=== PATIENT | female | born 1965 | race Caucasian/White ===

== ENCOUNTER 2021-04-18 09:27 | Inpatient (IN) | payer OTHER, SELFPAY ==
[2021-04-18] VITALS (72 sets, daily range): BP systolic 104–191; BP diastolic 57–118; PULSE 76–172; RESP 16–44; TEMP 36.1–36.9; O2SAT 92–99; BMI 38.4; BMI 37.9
--- NOTE | 2021-04-18 10:15 | ED_ITS ---
HPI - General Adult General Chief complaint: Hypertension Stated complaint: High bp, sent by [facility] Time Seen by Provider: 04/18/21 10:14 Source: patient Mode of arrival: Ambulatory Limitations: no limitations History of Present Illness HPI narrative: Patient is a 55-year-old female who has history of hypertension presenting with palpitations is intermittently an elevated blood pressure. She says over the last 3 days she has had intermittent palpitations. She occasionally feels a whooshing sound in her head. She felt a little dizzy lightheaded at times but not currently. She currently has no chest pain or pal pitations. Concerned about her blood pressure. She said due to insurance reasons and lack of PCP she ran out of her blood pressure medications about a year ago and has not followed up. Related Data Home Medications Medication Instructions Recorded Confirmed amlodipine 5 mg tablet 5 mg PO DAILY 04/18/21 04/18/21 hydrochlorothiazide 25 mg tablet 25 mg PO DAILY 04/18/21 04/18/21 lisinopril 20 mg tablet 20 mg PO DAILY 04/18/21 04/18/21 Allergies Allergy/AdvReac Type Severity Reaction Status Date / Time Penicillins Allergy Verified 04/18/21 10:45 Review of Systems Review of Systems Narrative: GENERAL: Denies chills, fatigue, malaise, fever, sweats, travel HEENT: Denies sinus pain, ear pain, sore throat, difficulty swallowing, neck pain RESPIRATORY: Denies dyspnea, cough, wheezing, hemoptysis, sputum. CARDIOVASCULAR: See HPI GASTROINTESTINAL: Denies nausea, vomiting, abdominal pain, diarrhea, constipation, melena. : Denies dysuria, frequency, incontinence, hematuria, urinary retention, flank pain. MUSCULOSKELETAL: Denies weakness, joint pain, or bony pain SKIN: No rash, no erythema, no pruritus NEUROLOGIC: Mild headache and lightheadedness Denies weakness, numbness, change in speech, confusion PSYCHIATRIC: No concerning psychosocial issues. 12 point review of systems is negative except for those stated above and HPI Patient History Medical History Alcohol use Anxiety Hypertension Surgical History H/O section Family History (Updated 04/18/21 @ 13:36 by Jesenia Guerrero MD) Mother COPD (chronic obstructive pulmonary disease) Social History Smoking Status: Never smoker alcohol intake: current Smoking Status: Never smoker alcohol intake frequency: 0-2 drinks per day Substance Use Type: does not use Exam Initial Vital Signs Initial Vital Signs: Vital Signs Temperature 98.3 F 04/18/21 09:44 Pulse Rate 97 H 04/18/21 09:44 Respiratory Rate 16 04/18/21 09:44 Blood Pressure 184/109 H 04/18/21 09:44 Pulse Oximetry 95 04/18/21 09:44 GENERAL: Slightly tearful 55-year-old female appears in no acute distress HEENT: Head atraumatic,EOMI, pupils reactive, face symmetric, moist mucous membranes CARDIOVASCULAR: Regular rate and rhythm without murmurs, rubs or gallops. RESPIRATORY: Breath sounds equal bilaterally, no wheezes rales or rhonchi. ABDOMEN: Soft, nontender. Normoactive bowel sounds all 4 quadrants. No guarding or rebound. EXTREMITIES: Normal range of motion, no clubbing or edema. Neurovascularly intact NEUROLOGICAL: Alert and oriented x4.Normal gait and speech. Cranial nerves II through XII grossly intact. Good [id number], good [id number], strength equal bilaterally, no dysarthria or aphasia, sensation in tact to soft touch bilaterally, no visual changes, no facial droop SKIN: Warm, dry, no laceration, no petechiae, no rashes or lesions. Scores CHADS-VASc Congestive heart failure: no Hypertension: yes Age 75 years or older: no Diabetes mellitus: no Stroke, TIA, or TE: no Vascular disease: no Age 65 to 74 years: no Sex category (female): Female CHADS-VASc Score: 2 Course Orders Ordered: ED Orders 04/18/21 10:19 XR chest 1V Stat EKG-12 Lead Stat 04/18/21 10:39 Complete Blood Count AUTO DIFF Stat Comprehensive Metabolic Panel Stat Lipase Stat NT-proBNP (BNP-Adult 18+) Stat Troponin & CK Cardiac Panel Stat 04/18/21 11:56 COVID19 - ADMIT (OBSTETRICIAN GYNECOLOGIST swab/PCR) Stat 04/18/21 13:10 Troponin I Stat Enoxaparin Sodium (Enoxaparin 100 Mg/Ml Syringe) 95 mg SUBCUT BID KISHAN Diltiazem HCl 125 mg/ Sodium (Chloride) 125 mls @ 5 mls/hr IV TITRATE KISHAN; Protocol Last Admin: 04/18/21 18:31 Dose: 20 mg/hr, 20 mls/hr Documented by: Titration: 04/18/21 18:31 Dose: 15 mg/hr, 15 mls/hr Documented by: Titration: 04/18/21 14:30 Dose: 15 mg/hr, 15 mls/hr Documented by: Titration: 04/18/21 12:39 Dose: 10 mg/hr, 10 mls/hr Documented by: Admin: 04/18/21 11:48 Dose: 5 mg/hr, 5 mls/hr Documented by: LEIA Sodium Chloride (Normal Saline 0.9%) 1,000 mls @ 100 mls/hr IV CONT KISHAN Last Admin: 04/18/21 14:22 Dose: 100 mls/hr Documented by: BALJINDER Lisinopril (Lisinopril 5 Mg Tablet) 5 mg PO DAILY [facility] Last Admin: 04/18/21 17:15 Dose: 5 mg Documented by: SUDARSHAN Lorazepam (Lorazepam 1 Mg Tablet) 1 mg PO Q4HR PRN PRN Reason: Anxiety Metoprolol Succinate (Metoprolol Er 25 Mg Tablet) 25 mg PO DAILY [facility] Last Admin: 04/18/21 17:15 Dose: 25 mg Documented by: SUDARSHAN Naloxone HCl (Naloxone 0.4 Mg/Ml Vial) 0.2 mg IV Q2MIN PRN PRN Reason: Opiate Reversal Sertraline HCl (Sertraline 50 Mg Tablet) 50 mg PO BEDTIME KISHAN Discontinued Medications Diltiazem HCl (Diltiazem 5 Mg/Ml Sdv) 10 mg IV NOW ONE Stop: 04/18/21 10:43 Last Admin: 04/18/21 10:55 Dose: 10 mg Documented by: LEIA Diltiazem HCl (Diltiazem 5 Mg/Ml Sdv) 20 mg IV NOW ONE Stop: 04/18/21 13:04 Last Admin: 04/18/21 13:12 Dose: 20 mg Documented by: LEIA Vital Signs Vital signs: Vital Signs - 8 hr 04/18/21 11:15 04/18/21 11:20 04/18/21 11:30 Pulse Rate 112 H 132 H 134 H Respiratory Rate 17 23 24 Blood Pressure 167/109 H Pulse Oximetry 94 95 94 04/18/21 11:31 04/18/21 11:41 04/18/21 11:45 Pulse Rate 132 H 136 H 132 H Respiratory Rate 20 24 20 Blood Pressure 191/100 H 158/92 H Pulse Oximetry 95 95 95 04/18/21 12:00 04/18/21 12:03 04/18/21 12:15 Pulse Rate 167 H 156 H 163 H Respiratory Rate 19 25 H 38 H Blood Pressure 169/93 H 175/105 H Pulse Oximetry 98 97 97 04/18/21 12:30 04/18/21 12:45 Pulse Rate 129 H 159 H Respiratory Rate 21 44 H Blood Pressure Pulse Oximetry 97 97 Medical Decision Making Lab Data Result diagrams: 04/18/21 10:39 04/18/21 10:39 Labs: Lab Results 04/18/21 04/18/21 04/18/21 Range/Units 10:39 10:39 10:39 WBC 11.0 (4.5-11.0) X10^3/uL RBC 5.64 H (4.0-5.2) X10^6/uL Hgb 17.8 H (12.0-16.0) g/dL Hct 52.9 H (36-46) % MCV 93.7 (80-100) fL MCH 31.6 (26-34) PG MCHC 33.7 (30-36) % RDW 13.1 (11.6-14.8) % Plt Count 265 (150-400) X10^3/uL Neut % (Auto) 61.1 (50-75) % Lymph % (Auto) 27.4 (25-40) % [place] % (Auto) 9.2 (3-14) % Eos % (Auto) 1.6 L (2-4) % Baso % (Auto) 0.7 (0-2) % Neut # (Auto) 6700 (0706-6033) /uL Lymph # (Auto) 3000 (6161-0102) /uL [place] # (Auto) 1000 H (0-900) /uL Eos # (Auto) 200 (0-450) /uL Baso # (Auto) 100 (0-100) /uL Sodium 143 (137-145) mmol/L Potassium 4.2 (3.4-5.1) mmol/L Chloride 104 (98-107) mmol/L Carbon Dioxide 27 (22-32) mmol/L BUN 14 (7-17) mg/dL Creatinine 0.61 (0.52-1.04) mg/dL Estimated GFR > 60.0 (>60) mL/min BUN/Creatinine Ratio 23.0 H (6-22) Glucose 100 (70-100) mg/dL Calcium 10.2 (8.4-10.2) mg/dL Magnesium (1.6-2.3) mg/dL Total Bilirubin 0.6 (0.2-1.3) mg/dL AST 34 (14-36) IU/L ALT 29 (<35) IU/L Alkaline Phosphatase 107 (38-126) U/L Total Creatine Kinase 101 (30-135) U/L CK-MB (CK-2) 0.96 (<2.37) ng/mL CK-MB (CK-2) Rel Index 1.0 L (1.5-5.0) % Troponin I 0.066 H (0.01-0.034) ng/mL NT-Pro-B Natriuret Pep 209 H (<125) pg/mL Total Protein 8.6 H (6.3-8.2) g/dL Albumin 4.7 (3.5-5.0) g/dL Globulin 3.9 (1.7-4.1) g/dL Albumin/Globulin Ratio 1.2 (1.0-2.8) Lipase 107 (23-300) U/L TSH (0.47-4.68) uIU/mL SARS-CoV-2 (PCR) (Negative) 04/18/21 04/18/21 04/18/21 Range/Units 10:39 10:39 11:56 WBC (4.5-11.0) X10^3/uL RBC (4.0-5.2) X10^6/uL Hgb (12.0-16.0) g/dL Hct (36-46) % MCV (80-100) fL MCH (26-34) PG MCHC (30-36) % RDW (11.6-14.8) % Plt Count (150-400) X10^3/uL Neut % (Auto) (50-75) % Lymph % (Auto) (25-40) % [place] % (Auto) (3-14) % Eos % (Auto) (2-4) % Baso % (Auto) (0-2) % Neut # (Auto) (9487-5613) /uL Lymph # (Auto) (0234-4561) /uL [place] # (Auto) (0-900) /uL Eos # (Auto) (0-450) /uL Baso # (Auto) (0-100) /uL Sodium (137-145) mmol/L Potassium (3.4-5.1) mmol/L Chloride (98-107) mmol/L Carbon Dioxide (22-32) mmol/L BUN (7-17) mg/dL Creatinine (0.52-1.04) mg/dL Estimated GFR (>60) mL/min BUN/Creatinine Ratio (6-22) Glucose (70-100) mg/dL Calcium (8.4-10.2) mg/dL Magnesium 2.1 (1.6-2.3) mg/dL Total Bilirubin (0.2-1.3) mg/dL AST (14-36) IU/L ALT (<35) IU/L Alkaline Phosphatase (38-126) U/L Total Creatine Kinase (30-135) U/L CK-MB (CK-2) (<2.37) ng/mL CK-MB (CK-2) Rel Index (1.5-5.0) % Troponin I (0.01-0.034) ng/mL NT-Pro-B Natriuret Pep (<125) pg/mL Total Protein (6.3-8.2) g/dL Albumin (3.5-5.0) g/dL Globulin (1.7-4.1) g/dL Albumin/Globulin Ratio (1.0-2.8) Lipase (23-300) U/L TSH 2.59 (0.47-4.68) uIU/mL SARS-CoV-2 (PCR) Negative (Negative) Imaging Data Chest x-ray: Radiologist's Impression: PROCEDURE: XR CHEST 1V INDICATIONS: chest pain TECHNIQUE: One view of the chest was acquired. COMPARISON: None. FINDINGS: Surgical changes and devices: None. Lungs and pleura: Minimal right basilar atelectasis. No pleural effusions or pneumothorax. Mediastinum: Mediastinal contours appear normal. Heart size is normal. Bones and chest wall: No suspicious bony lesions. Overlying soft tissues appear unremarkable. IMPRESSION: Minimal right basilar atelectasis. Dictated by: Tanmay Durham M.D. on 04/18/2021 at 10:30 Approved by: Tanmay Durham M.D. on 04/18/2021 at 10:31 ECG Data Interpretation: AFib with RVR rate [address] changes MDM Narrative Medical decision making narrative: Patient initial triage heart rate was 97. However EKG shows AFib with RVR and rate 163. Patient has been complaining of palpitations for the last 3 days. She is not a candidate for cardioversion and out of the window. No prior history of atrial fibrillation. She also has no follow-up or PCP. Troponin indeterminate likely from rapid ventricular rate. He is given initial Cardizem bolus of 10 mg which slowed her heart rate into the 120s or below however did come back up and she is placed on a Cardizem drip. Dr. mccoy updated on patient's symptoms test results and happily accepts patient Discharge Plan Departure Patient Disposition: Admitted As Inpatient Clinical Impression: Atrial fibrillation with rapid ventricular response Admit Date/Time: 04/18/21 12:45 Admit Provider: Jesenia Guerrero
--- NOTE | 2021-04-18 10:19 | DI.RAD.S_ITS ---
PROCEDURE: XR CHEST 1V INDICATIONS: chest pain TECHNIQUE: One view of the chest was acquired. COMPARISON: None. FINDINGS: Surgical changes and devices: None. Lungs and pleura: Minimal right basilar atelectasis. No pleural effusions or pneumothorax. Mediastinum: Mediastinal contours appear normal. Heart size is normal. Bones and chest wall: No suspicious bony lesions. Overlying soft tissues appear unremarkable. IMPRESSION: Minimal right basilar atelectasis. Dictated by: Tanmay Durham M.D. on 04/18/2021 at 10:30 Approved by: Tanmay Durham M.D. on 04/18/2021 at 10:31
[2021-04-18] MEDS: dilTIAZem 5 MG/ML SDV 10 MG IV (10:55)
[2021-04-18 11:00] LABS: Add Manual Diff / Slide Review NO; Basophils Absolute Auto 100 /uL (0-100); Basophils Percent Auto 0.7 % (0-2); Eosinophils Absolute Auto 200 /uL (0-450); Eosinophils Percent Auto 1.6 % (2-4); Hematocrit 52.9 % (36-46); Hemoglobin 17.8 g/dL (12.0-16.0); Lymphocytes Absolute Auto 3000 /uL (1100-4500); Lymphocytes Percent Auto 27.4 % (25-40); Mean Corpuscular HGB Conc 33.7 % (30-36); Mean Corpuscular Hemoglobin 31.6 PG (26-34); Mean Corpuscular Volume 93.7 fL (80-100); Monocytes Absolute Auto 1000 /uL (0-900); Monocytes Percent Auto 9.2 % (3-14); Neutrophils Absolute Auto 6700 /uL (1500-7000); Neutrophils Percent Auto 61.1 % (50-75); Platelet Count 265 X10^3/uL (150-400); Red Blood Cell Count 5.64 X10^6/uL (4.0-5.2); Red Cell Distribution Width 13.1 % (11.6-14.8)
[2021-04-18 11:01] LABS: Alanine Aminotransferase 29 IU/L (<35); Albumin 4.7 g/dL (3.5-5.0); Albumin Globulin Ratio 1.2 (1.0-2.8); Alkaline Phosphatase 107 U/L (38-126); Aspartate Aminotransferase 34 IU/L (14-36); Bilirubin Total 0.6 mg/dL (0.2-1.3); Blood Urea Nitrogen 14 mg/dL (7-17); Calcium 10.2 mg/dL (8.4-10.2); Carbon Dioxide 27 mmol/L (22-32); Chloride 104 mmol/L (98-107); Creatine Kinase 101 U/L (30-135); Estimated Glomerular Filt Rate > 60.0 mL/min (>60); Globulin 3.9 g/dL (1.7-4.1); Glucose 100 mg/dL (70-100); Lipase 107 U/L (23-300); Potassium 4.2 mmol/L (3.4-5.1); Sodium 143 mmol/L (137-145); Total Protein 8.6 g/dL (6.3-8.2)
[2021-04-18 11:12] LABS: Troponin I 0.066 ng/mL (0.01-0.034)
[2021-04-18 11:16] LABS: Creatine Kinase MB 0.96 ng/mL (<2.37); HEMOLYSIS 22 (0-50)
[2021-04-18 11:38] LABS: NT-proBNP (BNP-Adult 18+) 209 pg/mL (<125)
[2021-04-18] MEDS: dilTIAZem 125 MG in SODIUM CHLORIDE 0.9% 100 ML IV (11:48)
[2021-04-18 13:00] LABS: COVID19 - ADMIT (NP swab/PCR) Negative (Negative)
[2021-04-18] MEDS: dilTIAZem 5 MG/ML SDV 20 MG IV (13:12)
--- NOTE | 2021-04-18 13:27 | DI.ECHO.S_ITS ---
[place] [facility]---------+ [facility] +---------+ : : [address] : : : : [id number] : : : : Phone: [phone] Echocardiogram Report + + :Name: ARNULFO HOUSTON Study Date: 04/19/2021 Height: 62 in : :[facility] ReadingLocation: Weight: 210 lb : : Gender: Female BSA: 2.0 m2 : :: 1965 Age: 55 yrs BP: 132/93 mmHg: :Reason For Study: Chest pain : :Ordering Physician: BEV, : :JUSTIN Blackwood Performed By: Francis Hidalgo : :Referring: JUSTIN PABLO : + + Interpretation Summary Left ventricular systolic function appears normal with an estimated ejection fraction of 60 to 65% without any focal wall motion abnormality. Left ventricular size and wall thickness appear normal. Diastolic function cannot be assessed because of the presence of rapid atrial fibrillation. The right ventricle appears normal in size and systolic function. Right ventricular systolic pressure cannot be estimated but CVP is likely around 8 mmHg. Both atria are normal in size. There is no significant valvular abnormality. The patient was in atrial fibrillation at 94-135 bpm during the exam. Procedure: The study quality was technically adequate. A two-dimensional transthoracic echocardiogram with color flow and Doppler was performed. There is no prior echocardiogram noted for this patient. The patient was in atrial fibrillation with heart rates between 98-135 bpm during the exam. Left Ventricle: The left ventricle appears normal in size, wall thickness, and systolic function without any focal wall motion abnormalities. The ejection fraction is estimated to be 60-65%. Diastolic function could not be accurately assessed due to atrial fibrillation. Right Ventricle: The right ventricle is normal in size and function. Atria: Both atria are normal in size. There is no Doppler evidence for an interatrial shunt. Mitral Valve: The mitral valve is normal in structure and function. There is trace mitral regurgitation. Aortic Valve: The aortic valve is normal in structure and function. The aortic valve is trileaflet. The aortic valve opens well. There is trace aortic regurgitation. Tricuspid Valve: The tricuspid valve is normal in structure and function. There is a trace or physiologic amount of tricuspid regurgitation. Pulmonary artery pressures cannot be estimated because of the lack of a measurable TR jet velocity but the IVC suggests a CVP of around 8 mmHg. Pulmonic Valve: The pulmonic valve is not well seen, but is grossly normal. There is no pulmonic valvular regurgitation. There is no significant valvular heart disease. Great Vessels: The aortic root is normal size. The dimensions of the ascending aorta are normal. The IVC is dilated (diameter is greater than 2.1 cm) yet it collapses greater than 50% with a sniff. This suggests a right atrial pressure of 8 mm Hg. Pericardium/ Pleura There is no pericardial effusion. There is no pleural effusion. MMode/2D Measurements & Calculations LVIDd: 4.6 cm LVOT diam: 2.0 cm LVIDs: 3.2 cm Ao root diam: 2.9 cm FS: 30.6 % asc Aorta Diam: 3.2 cm IVSd: 1.0 cm LVPWd: 1.0 cm LV moore. diameter/BSA (cm/m^2): 2.4 LV sys. diameter/BSA (cm/m^2): 1.6 LA A2 area: 18.1 cm2 RA long axis: 4.7 cm LA A4 area: 19.0 cm2 RA area: 13.1 cm2 LA length (vol): 5.4 cm RA vol: 30.7 ml LA vol: 54.4 ml RA : 15.7 ml/m2 LA vol index: 27.9 ml/m2 IVC diam: 2.3 cm TAPSE: 1.7 cm Doppler Measurements & Calculations Ao V2 max: 121.2 cm/sec LVOT Max Ron: 103.0 cm/sec Ao V2 mean: 88.3 cm/sec LV V1 max P.2 mmHg Ao max P.9 mmHg LV V1 VTI: 15.4 cm Ao mean P.4 mmHg FLOYD(I,D): 2.7 cm2 Ao V2 VTI: 17.6 cm FLOYD(V,D): 2.6 cm2 sev ratio: 0.87 FLOYD indexed to BSA (cm^2/m^2): 1.4 PA pr(Accel): 57.6 mmHg SV(LVOT): 47.2 ml Reading Physician:12:47 PM
--- NOTE | 2021-04-18 13:30 | PM.HP.1 ---
History of Present Illness History of Present Illness Date Patient Seen: 04/18/21 Time Patient Seen: 13:31 Chief complaint: High bp, sent by [facility] Narrative: This is a 55-year-old female with a history of hypertension, currently untreated, who presents to the emergency department with 3 days of palpitations, shortness of breath, dizziness and blurry vision. She has no history of atrial fibrillation. She has had no chest pain. On initial evaluation her heart rate was recorded at 97 but with telemetry monitoring she is noted be into the 170s with atrial fibrillation / rapid ventricular response. She is stabilized on a diltiazem drip. She had previously been treated with lisinopril and amlodipine for hypertension but stopped that about a year ago when she moved from [place] to work at the local [employer]. She has no history of atrial fibrillation, coronary artery disease or any other cardiac problems. She has no history of hyperthyroidism. She does drink alcoholic drinks of 1-2 glasses of vodka daily and does not think that she has ever had alcohol withdrawal symptoms. She does not smoke cigarettes. She had previously been treated with Zoloft for anxiety. Patient History Medical History Alcohol use Anxiety Hypertension Surgical History H/O section Family & Social History Family History (Updated 04/18/21 @ 13:36 by Jesenia Guerrero MD) Mother COPD (chronic obstructive pulmonary disease) Social History: Her backup decision maker is her son Tana Ruiz. Safety & Behavioral: Feels Safe in Current Yes Environment Been Physically Hurt or No Threatened By a Person Tobacco & Substance use: Smoking Status Never smoker alcohol intake frequency 0-2 drinks per day Substance Use Type does not use Meds Home Medications and Allergies Home Medications Medication Instructions Recorded Confirmed Type amlodipine 5 mg tablet 5 mg PO DAILY 04/18/21 04/18/21 History hydrochlorothiazide 25 mg tablet 25 mg PO DAILY 04/18/21 04/18/21 History lisinopril 20 mg tablet 20 mg PO DAILY 04/18/21 04/18/21 History Allergies Allergy/AdvReac Type Severity Reaction Status Date / Time Penicillins Allergy Verified 04/18/21 10:45 Review of Systems Review of Systems Narrative: Positive for palpitations, shortness of breath, dizziness, poor vision. Negative for fevers, chills, sweats, chest pain, abdominal pain, nausea, vomiting, diarrhea, bleeding, rashes, seizures, headaches, difficulty talking, difficulty walking, new allergies. Exam Vital Signs (past 8 hours): - 04/18/21 09:44 04/18/21 10:15 04/18/21 10:30 Temperature 98.3 F Pulse Rate 97 H 78 98 H Respiratory Rate 16 Blood Pressure 184/109 H Pulse Oximetry 95 96 97 04/18/21 10:45 04/18/21 10:50 04/18/21 11:00 Temperature Pulse Rate 169 H 165 H 146 H Respiratory Rate 22 26 H 25 H Blood Pressure 173/118 H Pulse Oximetry 94 96 92 04/18/21 11:09 04/18/21 11:15 04/18/21 11:20 Temperature Pulse Rate 135 H 112 H 132 H Respiratory Rate 21 17 23 Blood Pressure 161/106 H 167/109 H Pulse Oximetry 94 94 95 04/18/21 11:30 04/18/21 11:31 04/18/21 11:41 Temperature Pulse Rate 134 H 132 H 136 H Respiratory Rate 24 20 24 Blood Pressure 191/100 H 158/92 H Pulse Oximetry 94 95 95 04/18/21 11:45 04/18/21 12:00 04/18/21 12:03 Temperature Pulse Rate 132 H 167 H 156 H Respiratory Rate 20 19 25 H Blood Pressure 169/93 H Pulse Oximetry 95 98 97 04/18/21 12:15 04/18/21 12:30 04/18/21 12:45 Temperature Pulse Rate 163 H 129 H 159 H Respiratory Rate 38 H 21 44 H Blood Pressure 175/105 H Pulse Oximetry 97 97 97 04/18/21 12:46 04/18/21 13:00 04/18/21 13:01 Temperature Pulse Rate 172 H 153 H 147 H Respiratory Rate 43 H 27 H 16 Blood Pressure 129/82 185/111 H Pulse Oximetry 97 96 97 Oxygen Delivery Method Room Air Narrative Exam Narrative: She is alert and oriented x3. She is in moderate distress from anxiety/palpitations. pupils are equally round and reactive to light and accommodation. Extraocular muscles are intact Sclerae are pink and nonicteric Throat looks normal Lymph nodes are absent in the head, neck, supraclavicular areas There is no thyromegaly JVD is less than 6 cm No carotid bruits are heard heart is irregularly tachycardic without murmur Lungs are clear to auscultation bilaterally Abdomen is soft, bowel sounds positive, nontender, no organomegaly. Extremities have no ankle edema Motor function is 5/5 throughout There is no tremor Cranial nerves 2-12 test intact Sensation is intact there is no skin rash or jaundice Objective Labs Result Diagrams: 04/18/21 10:39 04/18/21 10:39 Labs: Laboratory Results - last 24 hr 04/18/21 04/18/21 04/18/21 10:39 10:39 10:39 WBC 11.0 RBC 5.64 H Hgb 17.8 H Hct 52.9 H MCV 93.7 MCH 31.6 MCHC 33.7 RDW 13.1 Plt Count 265 Neut % (Auto) 61.1 Lymph % (Auto) 27.4 [place] % (Auto) 9.2 Eos % (Auto) 1.6 L Baso % (Auto) 0.7 Neut # (Auto) 6700 Lymph # (Auto) 3000 [place] # (Auto) 1000 H Eos # (Auto) 200 Baso # (Auto) 100 Sodium 143 Potassium 4.2 Chloride 104 Carbon Dioxide 27 BUN 14 Creatinine 0.61 Estimated GFR > 60.0 BUN/Creatinine Ratio 23.0 H Glucose 100 Calcium 10.2 Total Bilirubin 0.6 AST 34 ALT 29 Alkaline Phosphatase 107 Total Creatine Kinase 101 CK-MB (CK-2) 0.96 CK-MB (CK-2) Rel Index 1.0 L Troponin I 0.066 H NT-Pro-B Natriuret Pep 209 H Total Protein 8.6 H Albumin 4.7 Globulin 3.9 Albumin/Globulin Ratio 1.2 Lipase 107 SARS-CoV-2 (PCR) 04/18/21 11:56 WBC RBC Hgb Hct MCV MCH MCHC RDW Plt Count Neut % (Auto) Lymph % (Auto) [place] % (Auto) Eos % (Auto) Baso % (Auto) Neut # (Auto) Lymph # (Auto) [place] # (Auto) Eos # (Auto) Baso # (Auto) Sodium Potassium Chloride Carbon Dioxide BUN Creatinine Estimated GFR BUN/Creatinine Ratio Glucose Calcium Total Bilirubin AST ALT Alkaline Phosphatase Total Creatine Kinase CK-MB (CK-2) CK-MB (CK-2) Rel Index Troponin I NT-Pro-B Natriuret Pep Total Protein Albumin Globulin Albumin/Globulin Ratio Lipase SARS-CoV-2 (PCR) Negative Assessment & Plan Assessment & Plan narrative: This is a 55-year-old female with a history of hypertension, currently untreated, who presents to the emergency department with 3 days of palpitations, shortness of breath, dizziness and blurry vision. She has no history of atrial fibrillation. She has had no chest pain. On initial evaluation her heart rate was recorded at 97 but with telemetry monitoring she is noted be into the 170s with atrial fibrillation / rapid ventricular response. Atrial fibrillation with rapid ventricular response, present on admission. Active. -daily vodka intake of 1-2 glasses per day is likely one of the precipitants. -check echocardiogram, TSH and magnesium levels -Appears hemodynamically stable so will avoid aggressive medical cardioversion until a longer period of anticoagulation has been established and Echo has been done -continue diltiazem drip, wean as tolerated. -Add Metoprolol XL -Begin subcutaneous Lovenox 1 milligram/kilogram q.12 hours Hypertension, present on admission. Active. -Resume Lisinopril and add Metoprolol Anxiety, present on admission. Active. -Alcohol withdrawal could occur with her daily Vodka habit -Resume Sertraline (previously used) -Lorazepam prn Daily alcohol use, present on admission. Active. -CIWA protocol, check Mg level, Lorazepam prn Polycythemia, present on admission. Active. -Follow CBC daily -Hct 52.9 on admission, likely alcohol related. DVT prevention with subcutaneous Lovenox Backup decision maker is her son Tana Ruiz.
[2021-04-18 13:54] LABS: Troponin I 0.054 ng/mL (0.01-0.034)
[2021-04-18 13:55] LABS: Magnesium 2.1 mg/dL (1.6-2.3)
[2021-04-18] MEDS: SODIUM CHLORIDE 0.9% 1,000 ML 100 ML IV (14:22)
[2021-04-18 14:27] LABS: Thyroid Stimulating Hormone 2.59 uIU/mL (0.47-4.68)
--- NOTE | 2021-04-18 14:47 | PC.NURSE ---
Admit Note Patient arrived to room 227 via wheelchair from ER at 1420. Alert and oriented x3. Oriented to room and to call light/bed/tv controls. Call light within reach. Declines to lock up any valuables in safe. Cell phone at bedside, clothing and shoes with pt. Denies pain. Afib RVR in the 110-160s depending on activity level. Diltiazem gtt infusing at 15 mg/hr. BP elevated but improved from ER (See VS). Pt SBA in room due to line management.
--- NOTE | 2021-04-18 17:02 | PC.NURSE ---
1405 hours: Diltiazem drip stopped for Pt transport to floor.
[2021-04-18] MEDS: lisinopriL 5 MG TABLET PO (17:15)
[2021-04-18] MEDS: METOPROLOL ER 25 MG TABLET PO (17:15)
[2021-04-18] MEDS: dilTIAZem 125 MG in SODIUM CHLORIDE 0.9% 100 ML 20 ML IV (18:31)
[2021-04-18] MEDS: ENOXAPARIN 100 MG/ML SYRINGE 95 MG SUBCUT (20:58)
[2021-04-18] MEDS: SERTRALINE 50 MG TABLET PO (20:59)
[2021-04-19] VITALS (71 sets, daily range): BP systolic 102–155; BP diastolic 65–106; PULSE 64–141; RESP 16–39; TEMP 36.7–37.6; O2SAT 93–100
[2021-04-19] MEDS: SODIUM CHLORIDE 0.9% 1,000 ML 100 ML IV (00:15)
--- NOTE | 2021-04-19 03:20 | PC.NURSE ---
Addendum entered by Annie Moss R.N. 04/19/21 13:36: dilt gtt off for approx 2 hours then required going back on and increasing dose to 15mg/h additional dose of metoprolol given ( to equal 50mg) nd new order received for bid dosing of metoprolol 50mg. lungs dim but clear , face is diana and pt is pain free, up ad angelica in room and is stable on feet- echo completed and ciwa score 0 x 2 and remains on room air Original Note: PT SLEEPING SOUNDLY WITH HR DIPPING TO THE 60'S TURNED DILT GTT FROM 5MG/H TO OFF AT THIS TIME- PT REMAINS IN ATRIAL FLUTTER/FIB
[2021-04-19 05:51] LABS: Add Manual Diff / Slide Review NO; Basophils Absolute Auto 100 /uL (0-100); Basophils Percent Auto 0.8 % (0-2); Eosinophils Absolute Auto 200 /uL (0-450); Eosinophils Percent Auto 1.7 % (2-4); Hematocrit 49.2 % (36-46); Hemoglobin 16.5 g/dL (12.0-16.0); Lymphocytes Absolute Auto 2700 /uL (1100-4500); Lymphocytes Percent Auto 28.9 % (25-40); Mean Corpuscular HGB Conc 33.5 % (30-36); Mean Corpuscular Hemoglobin 31.5 PG (26-34); Mean Corpuscular Volume 94.1 fL (80-100); Monocytes Absolute Auto 600 /uL (0-900); Monocytes Percent Auto 6.9 % (3-14); Neutrophils Absolute Auto 5800 /uL (1500-7000); Neutrophils Percent Auto 61.7 % (50-75); Platelet Count 248 X10^3/uL (150-400); Red Blood Cell Count 5.23 X10^6/uL (4.0-5.2); Red Cell Distribution Width 13.1 % (11.6-14.8); White Blood Cell Count 9.4 X10^3/uL (4.5-11.0)
[2021-04-19 05:57] LABS: BUN Creatinine Ratio 19.7 (6-22); Blood Urea Nitrogen 13 mg/dL (7-17); Calcium 9.4 mg/dL (8.4-10.2); Carbon Dioxide 25 mmol/L (22-32); Chloride 106 mmol/L (98-107); Estimated Glomerular Filt Rate > 60.0 mL/min (>60); Glucose 98 mg/dL (70-100); HEMOLYSIS < 15 (0-50); Potassium 4.2 mmol/L (3.4-5.1); Sodium 140 mmol/L (137-145)
[2021-04-19 06:09] LABS: Troponin I 0.018 ng/mL (0.01-0.034)
--- NOTE | 2021-04-19 08:00 | P.PN_ITS ---
Subjective Subjective Date Patient Seen: 04/19/21 Interval history: She is seen today to follow-up potential alcohol withdrawal, atrial fibrillation with rapid ventricular response and anxiety. Her diltiazem drip has been titrated between ranges of 0 and up to 10 mg per hour. Her heart rate varies between 80 and about 120. She is calmer today. The white blood count is 9.4 with a hemoglobin of 16.5 and a normal BMP. The TSH is normal at 2.59 and the magnesium is 2.1. Her ejection fraction is 60-65% on the echocardiogram without valvular abnormality. Exam Vital Signs (past 8 hours): - 04/19/21 00:15 04/19/21 00:30 04/19/21 00:45 Temperature Pulse Rate 82 80 75 Respiratory Rate 19 19 20 Blood Pressure 109/67 Pulse Oximetry 98 93 93 04/19/21 01:00 04/19/21 01:15 04/19/21 01:30 Temperature Pulse Rate 83 77 82 Respiratory Rate 22 17 18 Blood Pressure 129/72 102/72 Pulse Oximetry 93 95 94 04/19/21 01:45 04/19/21 02:00 04/19/21 02:15 Temperature Pulse Rate 75 85 89 Respiratory Rate 18 16 18 Blood Pressure 129/90 Pulse Oximetry 94 93 93 04/19/21 02:30 04/19/21 05:00 Temperature 98.6 F Pulse Rate 81 Respiratory Rate 19 Blood Pressure 128/65 Pulse Oximetry 93 Oxygen Delivery Method Room Air Oxygen Flow Rate 0 Narrative Exam Narrative: She is alert and oriented x3, no apparent distress. She is interacting with her smart phone. She does not appear as anxious as she did yesterday. Heart is irregularly irregular without murmur. Lungs are clear to auscultation bilaterally Extremities have no ankle edema Abdomen is soft, bowel sounds positive, nontender, no organomegaly. Objective Labs Result Diagrams: 04/19/21 05:30 04/19/21 05:30 Labs: Laboratory Results - last 24 hr 04/18/21 04/18/21 04/18/21 10:39 10:39 10:39 WBC 11.0 RBC 5.64 H Hgb 17.8 H Hct 52.9 H MCV 93.7 MCH 31.6 MCHC 33.7 RDW 13.1 Plt Count 265 Neut % (Auto) 61.1 Lymph % (Auto) 27.4 [place] % (Auto) 9.2 Eos % (Auto) 1.6 L Baso % (Auto) 0.7 Neut # (Auto) 6700 Lymph # (Auto) 3000 [place] # (Auto) 1000 H Eos # (Auto) 200 Baso # (Auto) 100 Sodium 143 Potassium 4.2 Chloride 104 Carbon Dioxide 27 BUN 14 Creatinine 0.61 Estimated GFR > 60.0 BUN/Creatinine Ratio 23.0 H Glucose 100 Calcium 10.2 Magnesium Total Bilirubin 0.6 AST 34 ALT 29 Alkaline Phosphatase 107 Total Creatine Kinase 101 CK-MB (CK-2) 0.96 CK-MB (CK-2) Rel Index 1.0 L Troponin I 0.066 H NT-Pro-B Natriuret Pep 209 H Total Protein 8.6 H Albumin 4.7 Globulin 3.9 Albumin/Globulin Ratio 1.2 Lipase 107 TSH Nasal Screen MRSA (PCR) SARS-CoV-2 (PCR) 04/18/21 04/18/21 04/18/21 10:39 10:39 11:56 WBC RBC Hgb Hct MCV MCH MCHC RDW Plt Count Neut % (Auto) Lymph % (Auto) [place] % (Auto) Eos % (Auto) Baso % (Auto) Neut # (Auto) Lymph # (Auto) [place] # (Auto) Eos # (Auto) Baso # (Auto) Sodium Potassium Chloride Carbon Dioxide BUN Creatinine Estimated GFR BUN/Creatinine Ratio Glucose Calcium Magnesium 2.1 Total Bilirubin AST ALT Alkaline Phosphatase Total Creatine Kinase CK-MB (CK-2) CK-MB (CK-2) Rel Index Troponin I NT-Pro-B Natriuret Pep Total Protein Albumin Globulin Albumin/Globulin Ratio Lipase TSH 2.59 Nasal Screen MRSA (PCR) SARS-CoV-2 (PCR) Negative 04/18/21 04/18/21 04/19/21 13:10 14:15 05:30 WBC RBC Hgb Hct MCV MCH MCHC RDW Plt Count Neut % (Auto) Lymph % (Auto) [place] % (Auto) Eos % (Auto) Baso % (Auto) Neut # (Auto) Lymph # (Auto) [place] # (Auto) Eos # (Auto) Baso # (Auto) Sodium Potassium Chloride Carbon Dioxide BUN Creatinine Estimated GFR BUN/Creatinine Ratio Glucose Calcium Magnesium Total Bilirubin AST ALT Alkaline Phosphatase Total Creatine Kinase CK-MB (CK-2) CK-MB (CK-2) Rel Index Troponin I 0.054 H 0.018 NT-Pro-B Natriuret Pep Total Protein Albumin Globulin Albumin/Globulin Ratio Lipase TSH Nasal Screen MRSA (PCR) Negative for mrsa SARS-CoV-2 (PCR) 04/19/21 04/19/21 05:30 05:30 WBC 9.4 RBC 5.23 H Hgb 16.5 H Hct 49.2 H MCV 94.1 MCH 31.5 MCHC 33.5 RDW 13.1 Plt Count 248 Neut % (Auto) 61.7 Lymph % (Auto) 28.9 [place] % (Auto) 6.9 Eos % (Auto) 1.7 L Baso % (Auto) 0.8 Neut # (Auto) 5800 Lymph # (Auto) 2700 [place] # (Auto) 600 Eos # (Auto) 200 Baso # (Auto) 100 Sodium 140 Potassium 4.2 Chloride 106 Carbon Dioxide 25 BUN 13 Creatinine 0.66 Estimated GFR > 60.0 BUN/Creatinine Ratio 19.7 Glucose 98 Calcium 9.4 Magnesium Total Bilirubin AST ALT Alkaline Phosphatase Total Creatine Kinase CK-MB (CK-2) CK-MB (CK-2) Rel Index Troponin I NT-Pro-B Natriuret Pep Total Protein Albumin Globulin Albumin/Globulin Ratio Lipase TSH Nasal Screen MRSA (PCR) SARS-CoV-2 (PCR) [facility] Medical History Alcohol use Anxiety Hypertension Surgical History H/O section Family History (Updated 04/18/21 @ 13:36 by Jesenia Guerrero MD) Mother COPD (chronic obstructive pulmonary disease) Social History household members: none Smoking Status: Never smoker alcohol intake: current Assessment & Plan Assessment & Plan narrative: This is a 55-year-old female with a history of hypertension, currently untreated, who presents to the emergency department with 3 days of palpitations, shortness of breath, dizziness and blurry vision. She has no history of atrial fibrillation. She has had no chest pain. On initial evaluation her heart rate was recorded at 97 but with telemetry monitoring she is noted be into the 170s with atrial fibrillation / rapid ventricular response. Atrial fibrillation with rapid ventricular response, present on admission. Active. -daily vodka intake of 1-2 glasses per day is likely one of the precipitants. -normal echocardiogram, TSH and magnesium levels (EF 60-65%, TSH 2.59, magnesium 2.1) -increase metoprolol to 50 mg XL daily and wean off diltiazem. -continue subcutaneous Lovenox 1 milligram/kilogram q.12 hours Hypertension, present on admission. Active. -Resume Lisinopril and add Metoprolol Anxiety, present on admission. Active. -Alcohol withdrawal could occur with her daily Vodka habit -Resume Sertraline (previously used) -Lorazepam prn Daily alcohol use, present on admission. Active. -CIWA protocol, magnesium 2.1, Lorazepam prn Polycythemia, present on admission. Active. -Follow CBC daily -Hct 52.9 on admission, follow-up 49.2, likely alcohol related. DVT prevention with subcutaneous Lovenox Backup decision maker is her son Tana Ruiz. Quality VTE Deep Vein Thrombosis/Pulmonary Embolism Present on Admission: No
[2021-04-19] MEDS: ENOXAPARIN 100 MG/ML SYRINGE 95 MG SUBCUT ×2 (08:46→20:27)
[2021-04-19] MEDS: lisinopriL 5 MG TABLET PO (08:46)
[2021-04-19] MEDS: METOPROLOL ER 25 MG TABLET PO ×2 (08:47→12:41)
[2021-04-19] MEDS: dilTIAZem 125 MG in SODIUM CHLORIDE 0.9% 100 ML 15 ML IV (08:55)
[2021-04-19] MEDS: SODIUM CHLORIDE 0.9% 500 ML 21 ML IV (11:37)
--- NOTE | 2021-04-19 15:26 | CM.DANOTE ---
Patient is a 55 year old female who was admitted on 04/18/21 for High BP. Pt has [employer] for insurance and her PCP is not listed. EMR was reviewed. Per MD, pt with hx of hypertension and anxiety and now with AFIB and will get Echo today and then likely d/c home tomorrow with no needs. Pt moved from [place] to work at the [employer] and is active and independent at baseline and confirms that she drinks a glass or two of alcohol not quite every night after work but denies any tx needs or hx of withdrawal symptoms and does not feel it is a problem. CIWA scores are 0. Pt confirms she may need a PCP list for outpt follow up but may talk to her friend to determine which clinic and location. Pt does not anticipate any needs at d/c and agreeable with d/c home when medically stable. Plan: SW to follow for possible PCP list for the pt prior to d/c and confirm safe plan of home when medically stable. ARIADNA Bliss Discharge Planning/Care Management CM Discharge Assessment Start: 04/19/21 15:24 Freq: Status: Active Protocol: Document 04/19/21 15:24 BF (Rec: 04/19/21 15:26 BF [id number]) Discharge Planning Assessment Assigned Honey Blender ARIADNA Garner DPOA/Assigned Designee Name none, informally son Tana Contact Information [phone] Advance Directives? No Advance Directives on File No History Provided By Patient,Medical Record Prior Living Arrangements House Household Members none Type of transporation used prior to Drives own vehicle admit Independent with ADL's Yes Is patient alert and oriented? Yes Caregiver for Another No Barriers to Discharge No Discharge Plan Home Review Status In Process Please Provide Date Initial DC 04/19/21 Assessment Was Performed Next Review Type Continued Stay Review
[2021-04-19] MEDS: SERTRALINE 50 MG TABLET PO (20:27)
[2021-04-19] MEDS: dilTIAZem 125 MG in SODIUM CHLORIDE 0.9% 100 ML 10 ML IV (20:27)
[2021-04-19] MEDS: METOPROLOL ER 50 MG TABLET PO (20:27)
--- NOTE | 2021-04-19 22:47 | PC.NURSE ---
Patient is A/Ox4, RA, lungs clear, has no complaints of pain or discomfort, standby assist up to bathroom. Dilt drip was running at 10ml/hr at start of shift. Patient's telemetry shows Afib with HR ranging from 100-120 at rest. With activity her HR is 120-130's. Patient received increased PO metoprolol dose of 50mg at 2100. Able to titrate dilt drip down to 7.5ml/hr at end of shift. HR currently 90-110s.
[2021-04-20] VITALS (36 sets, daily range): BP systolic 97–153; BP diastolic 68–101; PULSE 78–115; RESP 15–49; TEMP 36.2–36.9; O2SAT 94–99
[2021-04-20] MEDS: ENOXAPARIN 100 MG/ML SYRINGE 95 MG SUBCUT ×2 (08:45→20:44)
[2021-04-20] MEDS: METOPROLOL ER 50 MG TABLET PO ×2 (08:45→20:43)
[2021-04-20] MEDS: lisinopriL 5 MG TABLET PO (08:45)
[2021-04-20] MEDS: dilTIAZem 30 MG TABLET 60 MG PO (09:29)
[2021-04-20] MEDS: AMIODARONE 150 MG/100 ML PIGGYBACK 600 MG IV (12:48)
[2021-04-20] MEDS: AMIODARONE 360 MG/200 ML PIGGYBACK 33.333 MG IV (13:22)
[2021-04-20] MEDS: SODIUM CHLORIDE 0.9% 500 ML 21 ML IV (13:25)
--- NOTE | 2021-04-20 13:43 | PC.NURSE ---
Day Shift Note PO diltiazem given this morning and dilt gtt titrated to off at 1030. Initially afib CVR in the 70-80s with increases to the low 100s. However, rate started increasing to the 140s with avtivity (i.e. eating lunch) and Dr. Giordano notified. Orders received for amiodarone gtt, 150 mg bolus given at 1312 and was followed by bag of 360 mg which is currently infusing at 33.3 ml/hr (1 mg/min). Pt tolerating well at this time, HR in the 70s, afib. Call light within reach, using appropriately to make needs known.
--- NOTE | 2021-04-20 18:00 | P.PN_ITS ---
Subjective Subjective Interval history: She has no complaints. She remains tachycardic on a diltiazem drip. Exam Vital Signs (past 8 hours): - 04/20/21 11:00 04/20/21 12:00 04/20/21 12:01 Temperature Pulse Rate 92 H 87 95 H Respiratory Rate 25 H 15 35 H Blood Pressure 143/74 H Pulse Oximetry 04/20/21 12:10 04/20/21 13:00 04/20/21 13:27 Temperature 98.4 F Pulse Rate 101 H 94 H 87 Respiratory Rate 16 26 H Blood Pressure 143/74 H 116/74 Pulse Oximetry 98 99 04/20/21 13:28 04/20/21 14:00 04/20/21 15:00 Temperature Pulse Rate 82 79 91 H Respiratory Rate 23 17 26 H Blood Pressure 116/74 97/69 99/68 Pulse Oximetry 04/20/21 16:00 04/20/21 17:00 Temperature 97.9 F Pulse Rate 100 H 93 H Respiratory Rate 16 30 H Blood Pressure 128/90 134/91 H Pulse Oximetry 97 95 Oxygen Delivery Method Room Air Oxygen Flow Rate 0 Narrative Exam Narrative: GEN: She is alert and oriented x3, no apparent distress. CV: irregularly irregular without murmur. tachycardic PULM: clear to auscultation bilaterally EXT: no ankle edema ABD: soft, bowel sounds positive, nontender, no organomegaly. Objective Labs Result Diagrams: 04/19/21 05:30 04/19/21 05:30 [facility] Medical History Alcohol use Anxiety Hypertension Surgical History H/O section Family History (Updated 04/18/21 @ 13:36 by Jesenia Guerrero MD) Mother COPD (chronic obstructive pulmonary disease) Social History household members: none Smoking Status: Never smoker alcohol intake: current Quality VTE Deep Vein Thrombosis/Pulmonary Embolism Present on Admission: No
[2021-04-20] MEDS: AMIODARONE 360 MG/200 ML PIGGYBACK 16.7 MG IV (19:55)
[2021-04-20] MEDS: SERTRALINE 50 MG TABLET PO (20:43)
[2021-04-21] VITALS (21 sets, daily range): BP systolic 116–187; BP diastolic 61–123; PULSE 69–145; RESP 8–33; TEMP 36.1–36.6; O2SAT 93–99; BMI 37.9
[2021-04-21 04:38] LABS: Hematocrit 47.9 % (36-46); Hemoglobin 16.3 g/dL (12.0-16.0); Mean Corpuscular HGB Conc 34.1 % (30-36); Platelet Count 237 X10^3/uL (150-400); Red Blood Cell Count 5.09 X10^6/uL (4.0-5.2); Red Cell Distribution Width 12.8 % (11.6-14.8); White Blood Cell Count 9.4 X10^3/uL (4.5-11.0)
[2021-04-21 04:44] LABS: BUN Creatinine Ratio 17.9 (6-22); Blood Urea Nitrogen 12 mg/dL (7-17); Calcium 9.3 mg/dL (8.4-10.2); Carbon Dioxide 26 mmol/L (22-32); Chloride 106 mmol/L (98-107); Estimated Glomerular Filt Rate > 60.0 mL/min (>60); Glucose 100 mg/dL (70-100); HEMOLYSIS 15 (0-50); Potassium 3.9 mmol/L (3.4-5.1); Sodium 140 mmol/L (137-145)
[2021-04-21] MEDS: METOPROLOL ER 50 MG TABLET PO (06:18)
[2021-04-21] MEDS: lisinopriL 5 MG TABLET PO (06:19)
[2021-04-21] MEDS: AMIODARONE 181 MG/100.56 ML PIGGYBACK 16.667 MG IV (08:20)
--- NOTE | 2021-04-21 15:39 | PC.NURSE ---
Am shift Pt continues on Amioderone gtt, at rest HR is down to 80-90s Afib. With any activity, RVR into 120--130. Denies symptoms at this point. N oCP no SOB. Pt will increase Metoprolol dosing see if Pt is stable enough to do cardioversion as an outpatient, Pt is not stable at this point, Continue to monitor for compilations. Iv amioderone completed.
[2021-04-21] MEDS: AMIODARONE 200 MG TABLET 400 MG PO (16:37)
[2021-04-21] MEDS: METOPROLOL ER 50 MG TABLET 200 MG PO (16:37)
[2021-04-21] MEDS: AMLODIPINE 5 MG TABLET PO (16:49)
--- NOTE | 2021-04-21 20:26 | PM.PN.1 ---
Subjective Subjective Date Patient Seen: 04/21/21 Time Patient Seen: 08:00 Interval history: She feels well, but she continues to remain tachycardic. She does not feel any chest pain, palpitations, lightheadedness. Exam Vital Signs (past 8 hours): - 04/21/21 13:00 04/21/21 14:00 04/21/21 15:00 Temperature Pulse Rate 120 H 117 H 107 H Respiratory Rate 20 24 24 Blood Pressure 149/109 H 164/100 H 156/94 H Pulse Oximetry 95 96 96 04/21/21 16:00 04/21/21 16:37 04/21/21 16:55 Temperature 97.6 F 97.5 F L Pulse Rate 122 H 123 H 133 H Respiratory Rate 23 33 H Blood Pressure 148/80 H 187/120 H 170/103 H Pulse Oximetry 96 96 04/21/21 17:07 04/21/21 18:00 04/21/21 19:00 Temperature 97 F L 97.8 F Pulse Rate 105 H 69 120 H Respiratory Rate 16 26 H Blood Pressure 126/68 173/123 H 126/68 Pulse Oximetry 96 96 Oxygen Delivery Method Room Air Oxygen Flow Rate 0 Narrative Exam Narrative: GEN: She is alert and oriented x3, no apparent distress. CV: irregularly irregular without murmur. tachycardic PULM: clear to auscultation bilaterally EXT: no ankle edema ABD: soft, bowel sounds positive, nontender, no organomegaly. Objective Labs Result Diagrams: 04/21/21 04:15 04/21/21 04:15 Labs: Laboratory Results - last 24 hr 04/21/21 04/21/21 04:15 04:15 WBC 9.4 RBC 5.09 Hgb 16.3 H Hct 47.9 H MCV 94.0 MCH 32.0 MCHC 34.1 RDW 12.8 Plt Count 237 Sodium 140 Potassium 3.9 Chloride 106 Carbon Dioxide 26 BUN 12 Creatinine 0.67 Estimated GFR > 60.0 BUN/Creatinine Ratio 17.9 Glucose 100 Calcium 9.3 PFSH Medical History Alcohol use Anxiety Hypertension Surgical History H/O section Family History (Updated 04/18/21 @ 13:36 by Jesenia Guerrero MD) Mother COPD (chronic obstructive pulmonary disease) Social History household members: none Smoking Status: Never smoker alcohol intake: current Assessment & Plan Assessment & Plan narrative: This is a 55-year-old female with a history of hypertension, currently untreated, who presents to the emergency department with 3 days of palpitations, shortness of breath, dizziness and blurry vision. She has no history of atrial fibrillation. She has had no chest pain. On initial evaluation her heart rate was recorded at 97 but with telemetry monitoring she is noted be into the 170s with atrial fibrillation / rapid ventricular response. 1. Atrial fibrillation with rapid ventricular response, present on admission. Active. -daily vodka intake of 1-2 glasses per day is likely one of the precipitants. -normal echocardiogram, TSH and magnesium levels (EF 60-65%, TSH 2.59, magnesium 2.1) -increase metoprolol to to 200mg XL BID -started amiodarone infusion and will transition to oral amiodarone -discussing with cardiology if she continues to be tachycardic may need a KEESHA cardioversion -continue subcutaneous Lovenox 1 milligram/kilogram q.12 hours 2. Hypertension, present on admission. Active. -Resume Lisinopril and add Metoprolol and amlodipine 3. Anxiety, present on admission. Active. -Alcohol withdrawal could occur with her daily Vodka habit -Resume Sertraline (previously used) -Lorazepam prn 4. Daily alcohol use, present on admission. Active. -CIWA protocol, magnesium 2.1, Lorazepam prn 5. Polycythemia, present on admission. Active. -Follow CBC daily -Hct 52.9 on admission, follow-up 49.2, likely alcohol related. DVT prevention with subcutaneous Lovenox Backup decision maker is her son Tana Ruiz. Quality VTE Deep Vein Thrombosis/Pulmonary Embolism Present on Admission: No
[2021-04-21] MEDS: ENOXAPARIN 100 MG/ML SYRINGE 95 MG SUBCUT (21:55)
[2021-04-21] MEDS: SERTRALINE 50 MG TABLET PO (21:55)
[2021-04-22] VITALS (8 sets, daily range): BP systolic 101–155; BP diastolic 63–94; PULSE 60–138; RESP 17–18; O2SAT 93–98
--- NOTE | 2021-04-22 00:38 | PM.DS.1 ---
History of Present Illness History of Present Illness Chief complaint: High bp, sent by [facility] Narrative: Per Dr. Guerrero: his is a 55-year-old female with a history of hypertension, currently untreated, who presents to the emergency department with 3 days of palpitations, shortness of breath, dizziness and blurry vision. She has no history of atrial fibrillation. She has had no chest pain. On initial evaluation her heart rate was recorded at 97 but with telemetry monitoring she is noted be into the 170s with atrial fibrillation / rapid ventricular response. She is stabilized on a diltiazem drip. She had previously been treated with lisinopril and amlodipine for hypertension but stopped that about a year ago when she moved from [place] to work at the local [employer]. She has no history of atrial fibrillation, coronary artery disease or any other cardiac problems. She has no history of hyperthyroidism. She does drink alcoholic drinks of 1-2 glasses of vodka daily and does not think that she has ever had alcohol withdrawal symptoms. She does not smoke cigarettes. She had previously been treated with Zoloft for anxiety. Discharge Providers Provider Date of admission: 04/18/21 12:45 Discharge Date: 04/22/21 Discharge provider: Efraín Giordano MD Summary Hospital Course Discharge Diagnosis: 1. Atrial fibrillation with rapid ventricular response 2. Hypertension 3. Anxiety 4. Daily alcohol use 5. Polycythemia Hospital Course: Ms. Montiel presented with tachycardia which was initially symptomatic. She was controlled on diltiazem drip. She eventually needed an amiodarone load and metoprolol. She did eventually convert to sinus with this and will be discharged on oral metoprolol and amiodarone. She will also be discharged with apixaban. ECHO showed preserved EF, TSH normal. She is a daily alcohol drinker and was advised to stop drinking. She was noted to have mild polycythemia and anxiety. She also had noted hypertension and was given a script for amlodipine Exam Vital Signs (past 8 hours): Oxygen Delivery Method Room Air Oxygen Flow Rate 0 Narrative Exam Narrative: GEN: She is alert and oriented x3, no apparent distress. CV: regular without murmur. PULM: clear to auscultation bilaterally EXT: no ankle edema ABD: soft, bowel sounds positive, nontender, no organomegaly. Objective Labs Result Diagrams: 04/21/21 04:15 04/21/21 04:15 [facility] Medical History Alcohol use Anxiety Hypertension Surgical History H/O section Family History (Updated 04/18/21 @ 13:36 by Jesenia Guerrero MD) Mother COPD (chronic obstructive pulmonary disease) Social History household members: none Smoking Status: Never smoker alcohol intake: current Discharge Plan Discharge Plan Patient Disposition: Home Provider Discharge Comment: Ms. Montiel came in to the hospital with fast heart rate, called atrial fibrillation. She was able to convert back to sinus rhythm (a normal rhythm with some new medications). Alcohol may be contributing to this arrhythmia. Please refrain from drinking. New medications were prescribed with amiodarone which is to keep your heart in a normal rhythm. Metoprolol that helps control heart rate. Apixaban is a blood thinner that reduces risk of stroke with atrial fibrillation. Please follow up with your PCP and you are referred to a wagon driver salesperson at [facility]. Discharge orders & Medications Prescriptions: New lisinopril 5 mg Tablet 5 mg PO DAILY Qty: 30 RF: 0 sertraline [Zoloft] 50 mg Tablet 50 mg PO BEDTIME Qty: 30 RF: 0 metoprolol succinate 50 mg capsule,sprinkle,ER 24hr 150 mg PO DAILY Qty: 90 RF: 0 amiodarone 200 mg tablet 200 mg PO BID Qty: 60 RF: 0 apixaban 5 mg tablet 5 mg PO BID Qty: 60 RF: 0 Continued hydrochlorothiazide 25 mg Tablet 25 mg PO DAILY RF: 0 amlodipine 5 mg Tablet 5 mg PO DAILY Qty: 30 RF: 0 Discontinued lisinopril 20 mg Tablet 20 mg PO DAILY RF: 0 Follow up/Referrals: Kavin Wilde MD [Physician] - (new afib with rvr, converted with amiodarone and metoprolol) Diet/Activity/Treatments Diet: Regular Quality VTE Deep Vein Thrombosis/Pulmonary Embolism Present on Admission: No MIPS - DC The patient has current or prior documentation of left ventricular ejection fraction (LVEF) less than 40%, or moderate or severely depressed left ventricular systolic function.: No
--- NOTE | 2021-04-22 02:43 | PC.NURSE ---
Patient A/Ox4, on RA, no complaints of pain. BP and HR both elevated at start of shift with HR ranging 110-140 and BP as high as 187/120. Received orders for amlodipine, PO amio, and an increased dose of metoprolol. HR and BP decreased throughout the evening. HR when at rest remains 80-100 and is 100-120 with activity. Talked with patient about possible plan to D/C when rate controlled and be seen outpatient for cardioversion. Patient is eager to go home.
[2021-04-22] MEDS: METOPROLOL ER 50 MG TABLET 200 MG PO (05:47)
--- NOTE | 2021-04-22 08:25 | PC.NURSE ---
Addendum entered by Annie Moss R.N. 04/22/21 09:04: pt discharged to home with new rx that were reviewed at length with pt and answered all questions to her satisfaction- discharged from hospital at this time Original Note: pt converted to SR at 0807am from AFIB cvr/rvr - lungs dim but clear ans pt hopeful to discharge - placed on portable tele after am shower - md aware
[2021-04-22] MEDS: lisinopriL 5 MG TABLET PO (08:34)
[2021-04-22] MEDS: AMLODIPINE 5 MG TABLET PO (08:36)
[2021-04-22] MEDS: AMIODARONE 200 MG TABLET 400 MG PO (08:36)
== END 2021-04-22 09:05 | disposition home or self-care (01) | DRG 310 ==
LOC: ED 12:45 → AC 13:04 → ICU 04-19 14:54 → AC 04-20 15:29 → ICU 04-20 15:29
PROVIDERS: Internal Medicine; Admitting Provider Family Medicine; Emergency Provider Emergency Medicine; Referring Provider Emergency Medicine; Visit Provider Family Medicine
DX: I48.91 Unspecified atrial fibrillation (principal); I10 Essential (primary) hypertension; F41.9 Anxiety disorder, unspecified; D75.1 Secondary polycythemia; Z72.89 Other problems related to lifestyle; Z20.822 Contact with and (suspected) exposure to COVID-19
CPT/HCPCS: 36415; 71045; 80048; 80053; 82550; 82553; 83690; 83735; 83880; 84443; 84484; 85025; 85027; 87635; 87797; 93005; 93306; 96365; 96366; 96375; 96376; 99284; C9803; J0282; J1650

== ENCOUNTER → 2021-07-05 14:30 | Outpatient (CLI) | payer OTHER, SELFPAY ==
[2021-04-21 16:56] VITALS: BMI 37.9
[2021-07-05 15:23] LABS: Add Manual Diff / Slide Review NO; Basophils Absolute Auto 0 /uL (0-100); Basophils Percent Auto 0.5 % (0-2); Eosinophils Absolute Auto 200 /uL (0-450); Eosinophils Percent Auto 2.7 % (2-4); Hematocrit 42.3 % (36-46); Lymphocytes Absolute Auto 2200 /uL (1100-4500); Lymphocytes Percent Auto 25.3 % (25-40); Mean Corpuscular HGB Conc 33.2 % (30-36); Mean Corpuscular Hemoglobin 31.1 PG (26-34); Mean Corpuscular Volume 93.7 fL (80-100); Monocytes Absolute Auto 500 /uL (0-900); Monocytes Percent Auto 5.7 % (3-14); Neutrophils Absolute Auto 5600 /uL (1500-7000); Neutrophils Percent Auto 65.8 % (50-75); Platelet Count 204 X10^3/uL (150-400); Red Blood Cell Count 4.52 X10^6/uL (4.0-5.2); Red Cell Distribution Width 13.3 % (11.6-14.8); White Blood Cell Count 8.5 X10^3/uL (4.5-11.0)
[2021-07-05 15:51] LABS: BUN Creatinine Ratio 17.1 (6-22); Blood Urea Nitrogen 14 mg/dL (7-17); Calcium 9.3 mg/dL (8.4-10.2); Carbon Dioxide 28 mmol/L (22-32); Chloride 108 mmol/L (98-107); Cholesterol 174 mg/dL (140-199); Estimated Glomerular Filt Rate > 60.0 mL/min (>60); Glucose 92 mg/dL (70-100); HDL Cholesterol 40 mg/dL (40-60); HEMOLYSIS < 15 (0-50); LDL Cholesterol Calculated 112 mg/dL (<100); Potassium 3.9 mmol/L (3.4-5.1); Sodium 142 mmol/L (137-145); Triglycerides 109 mg/dL (35-150)
[2021-07-05 16:16] LABS: TSH w/ Reflex to FT4 6.54 uIU/mL (0.47-4.68)
[2021-07-05 20:38] LABS: Free T4, Direct Thyroxine 0.96 ng/dL (0.78-2.19)
== END ==
PROVIDERS: Referring Provider Internal Medicine Cardiovascular Disease; Visit Provider Internal Medicine Cardiovascular Disease
DX: I10 Essential (primary) hypertension (principal); I48.0 Paroxysmal atrial fibrillation
CPT/HCPCS: 36415; 80048; 80061; 84439; 84443; 85025

== ENCOUNTER → 2021-12-03 12:31 | Outpatient (CLI) | payer OTHER, SELFPAY ==
[2021-04-21 16:56] VITALS: BMI 37.9
[2021-12-03 15:34] LABS: Add Manual Diff / Slide Review NO; Basophils Absolute Auto 0 /uL (0-100); Basophils Percent Auto 0.4 % (0-2); Eosinophils Absolute Auto 200 /uL (0-450); Hematocrit 45.1 % (36-46); Hemoglobin 15.5 g/dL (12.0-16.0); Lymphocytes Absolute Auto 2000 /uL (1100-4500); Lymphocytes Percent Auto 29.3 % (25-40); Mean Corpuscular HGB Conc 34.3 % (30-36); Mean Corpuscular Hemoglobin 32.2 PG (26-34); Mean Corpuscular Volume 93.9 fL (80-100); Monocytes Absolute Auto 500 /uL (0-900); Monocytes Percent Auto 7.5 % (3-14); Neutrophils Absolute Auto 4100 /uL (1500-7000); Neutrophils Percent Auto 59.8 % (50-75); Red Cell Distribution Width 12.9 % (11.6-14.8); White Blood Cell Count 6.9 X10^3/uL (4.5-11.0)
[2021-12-03 15:42] LABS: BUN Creatinine Ratio 14.3 (6-22); Blood Urea Nitrogen 11 mg/dL (7-17); Calcium 9.6 mg/dL (8.4-10.2); Carbon Dioxide 33 mmol/L (22-32); Chloride 104 mmol/L (98-107); Estimated Glomerular Filt Rate > 60.0 mL/min (>60); Glucose 83 mg/dL (70-100); HEMOLYSIS < 15 (0-50); Potassium 4.5 mmol/L (3.4-5.1); Sodium 142 mmol/L (137-145)
[2021-12-03 15:50] LABS: Platelet Count 197 X10^3/uL (150-400)
== END ==
PROVIDERS: Referring Provider Internal Medicine Cardiovascular Disease; Visit Provider Internal Medicine Cardiovascular Disease
DX: I48.0 Paroxysmal atrial fibrillation (principal); Z79.01 Long term (current) use of anticoagulants
CPT/HCPCS: 36415; 80048; 85025